=== PATIENT | male | born 1965 | race Caucasian/White ===

== ENCOUNTER → 2018-08-25 | Outpatient (CLI) | payer OTHER ==
[~2018-08-25] MED LIST: IOHEXOL 100 ML; NITROGLYCERIN AEROSOL (4.9 GM); SOD CHLORIDE 0.9% 100 ML
[2018-08-25] MEDS: METOPROLOL 100 MG TAB (09:59)
[2018-08-25] MEDS: METOPROLOL 100 MG TAB PO (10:19)
== END | disposition home or self-care (01) ==
LOC: C/S 09:07
DX: R94.39 Abnormal result of other cardiovascular function study (principal); R07.9 Chest pain, unspecified
CPT/HCPCS: 75571; 75571-59; 75574